=== PATIENT | female | born 1970 | race Caucasian/White ===

== ENCOUNTER 2017-09-20 01:43 | Emergency (ER) | payer SELFPAY ==
[~2017-09-20] VITALS: Ht 160 cm; Wt 86.5 kg
[2017-09-20 01:56] VITALS: Ht 160 cm; Wt 86.5 kg
[2017-09-20 07:29] LABS: URINE BLOOD (Dip) POC 3+ (NEGATIVE)
[2017-09-20] MEDS ORDERED: CEPH-443 PO (07:32)
[2017-09-20] MEDS ORDERED: PHEN-537 PO (07:32)
--- NOTE | 2017-09-20 07:58 | ERD ---
ER Documentation Chief Complaint Chief Complaint pelvic pain x4 days HPI This is a 47-year-old female that presents to the ER with urinary frequency and dysuria for the last 4 days. Patient denies any flank pain. She denies any fevers or chills. She denies any nausea vomiting or diarrhea. Patient does admit to suprapubic pain. Her last normal menstrual period was September 11, 2017. She denies any vaginal discharge. Normal vaginal bleeding. ROS 12 point review of systems was done, all negative except per HPI. Medications Home Meds Active Scripts Phenazopyridine Hcl* (Pyridium*) 100 Mg Tab, 100 MG PO TID Y for URINARY PAIN, # 9 TAB Prov:ALCIDES MENDENHALL C 09/20/17 Cephalexin* (Keflex*) 500 Mg Capsule, 500 MG PO BID for 7 Days, CAP Prov:ABDIRASHID,ALCIDES C 09/20/17 PMhx/Soc Medical and Surgical Hx: pt denies Medical Hx, pt denies Surgical Hx Hx Alcohol Use: No Hx Substance Use: No Hx Tobacco Use: No Smoking Status: Never smoker Physical Exam Vitals Vital Signs Date Time Temp Pulse Resp B/P Pulse Ox O2 Delivery O2 Flow Rate FiO2 09/20/17 01:56 98.3 74 20 124/76 99 Physical Exam GENERAL: The patient is well developed and appropriate for usual state of health , in no apparent distress. HEENT: Atraumatic. CHEST: Clear to auscultation bilaterally. There are no rales, wheezes or rhonchi. HEART: Regular rate and rhythm. No murmurs, clicks, rubs or gallops. ABDOMEN: Soft, nontender and nondistended. Good bowel sounds. No rebound or guarding. No gross peritonitis. No gross organomegaly or masses. No Beasley sign or McBurney point tenderness. suprapubic tenderness. BACK: No midline or flank tenderness. NEURO: Alert and oriented. SKIN: The skin is warm and dry. Results 24 hrs Laboratory Tests Test 09/20/17 07:29 Bedside Urine pH (LAB) 6.0 Bedside Urine Protein (LAB) Negative Bedside Urine Glucose (UA) Negative Bedside Urine Ketones (LAB) Negative Bedside Urine Blood 3+ Bedside Urine Nitrite (LAB) Negative Bedside Urine Leukocyte Esterase (L 3+ Procedures/MDM This is a 47-year-old female presents to the ER with urinary frequency and dysuria. She does have a urinary tract infections is likely the cause of her suprapubic pain. Suspicion for acute abdomen is low patient does not have any abdominal pain. Suspicion for ovarian torsion is low, patient is well- appearing and did not require pain medications for her pain here in the ER. Tubo-ovarian abscess, patient is afebrile and does not have history of fevers. I doubt pyelonephritis. Patient will be sent home with Keflex and Pyridium. She is to follow-up with her primary care doctor within 1-2 days return to ER sooner if symptoms worsen. My medical decision making shared with the patient she understands and agrees with plan. Departure Diagnosis: Primary Impression: UTI (urinary tract infection) Condition: Stable Patient Instructions: Understanding Urinary Tract Infections (UTIs) Additional Instructions: Llame al doctor MAANA y anitha florecita YAJAIRA PARA DENTRO DE 1-2 ALEJANDRA.Dgale a la secretaria que nosotros le instruimos hacer esta yajaira.Avise o llame si mckeon condicin se empeora antes de la yajaira. Regresa aqui si peor o no mejor. ALCIDES MENDENHALL Sep 20, 2017 07:58
== END 2017-09-20 08:12 | disposition home or self-care (01) ==
LOC: FTE 01:43
DX: N39.0 Urinary tract infection, site not specified (principal)
CPT/HCPCS: 81003; 99283